=== PATIENT | female | born 1945 | race Caucasian/White ===

== ENCOUNTER → 2018-10-09 | Day surgery (SDC) | payer MEDICARE, BC ==
[~2018-10-09] MED LIST: Lidocaine 1% 20 ML MDV ONE
--- NOTE | 2018-10-09 10:18 | OR ---
DATE OF OPERATION: 10/09/2018 PREOPERATIVE DIAGNOSIS: VENOUS INSUFFICIENCY WITH PAINFUL VARICOSITIES. POSTOPERATIVE DIAGNOSIS: VENOUS INSUFFICIENCY WITH PAINFUL VARICOSITIES. SURGEON: Chad Patel MD PROCEDURE: MARGARITA, RIGHT GSV. ANESTHESIA: Local with tumescent. COMPLICATIONS: None. SPECIMEN: None. FINDINGS: Successful MARGARITA, right GSV. 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 She has painful varicosities from this. She elects to proceed with endovenous ablation. DESCRIPTION OF PROCEDURE: The patient was brought to the operating room suite, and the insufficient saphenous vein mapped via ultrasound and diagrammed on the overlying skin including the access site below the knee. The entire limb was prepped and draped in sterile fashion. The patient was placed in reverse Trendelenburg position. Local anesthesia was instilled over the access site. The vein was accessed using ultrasound guidance and Seldinger technique. With a needle inserted easily into the vein, the guidewire was introduced through the needle. Needle was removed. A small incision was made with an 11 blade scalpel. The guidewire was then exchanged with a 6-Hungarian sheath held in place by skin tension. The sheath was flushed. The radiofrequency probe was then placed into the vein through the sheath and positioned approximately 2.1 cm distal to the saphenofemoral junction under ultrasound guidance, keeping the catheter tip inferior to superficial epigastric vein. Once probe position confirmed again via ultrasound, tumescent anesthesia was infiltrated into the perivenous compartment along the length of the vein from the entry site to the saphenofemoral junction, achieving a nice halo effect around the vein. The patient was placed back in Trendelenburg position to exsanguinate the superficial venous system. Radiofrequency probe position was again confirmed via ultrasound, and under direct external compression along the length of the heating element, radiofrequency energy was applied. The vein was segmentally ablated by heating the 7 cm segment and indexing the catheter forward to 6.5 cm until treatment complete. Device temperature was maintained at 120 degrees Celsius with an initial power level of 40 fabian, dropping to below 20 for each treatment. Total radial radiofrequency treatment time was 3 minutes and 40 seconds with 11 radiofrequency cycles. We used a total of 600 mL of tumescent. Catheter and sheath were withdrawn without complication and direct pressure, allowed hemostasis. A butterfly dressing was applied over the access site. Repeat ultrasound of the vein confirmed successful treatment. The leg was wrapped with compression from the level of the foot to the groin. The patient was stable in the recovery room. ALIN/RIRI /[id number]
== END ==
LOC: CC.SDS 08:02
PROVIDERS: ATTEND Family Medicine
DX: I83.811 Varicose veins of right lower extremity with pain (principal); I87.2 Venous insufficiency (chronic) (peripheral)
CPT/HCPCS: 36475; A4216

== ENCOUNTER 2025-08-28 17:37 | Observation (INO) | payer MEDICARE, BC ==
[2025-08-28] MEDS ORDERED: Ondansetron 4 MG/2 ML SDV IV PRN (17:45)
[2025-08-28] MEDS: Calcium Carbonate/Vitamin D3 1250 MG-5 MCG Tab PO SCH (20:21)
[2025-08-29] MEDS: Ondansetron 4 MG Tab.DIS PO PRN (03:15)
[2025-08-29] MEDS: glipiZIDE 5 MG Tab.ER PO SCH (07:31)
[2025-08-29] MEDS: Potassium Chloride 10 MEQ Tab.ER PO SCH (07:31)
[2025-08-29] MEDS: Vitamin E (dl-alpha-tocopherol acetate) 400 Unit Cap PO SCH (07:33)
[2025-08-29 07:51] LABS: ALANINE AMINOTRANSFERASE,ALT 265.0 U/L (12-78); ASPARTATE AMNIOTRANSFERASE,AST 151.0 U/L (15-37); BILIRUBIN TOTAL 3.2 mg/dL (0.0-1.0); BLOOD UREA NITROGEN,BUN 11.0 mg/dL (7-18); CARBON DIOXIDE,CO2 24.0 mmol/L (21-32); CHLORIDE,CL 103.0 mEq/L (98-106); CREATININE 0.5 mg/dL (0.6-1.0); EST CRCL DRUG DOSING (CG) 74.91 mL/min; GLUCOSE RANDOM 122.0 mg/dL (75-99); POTASSIUM,K 3.8 mEq/L (3.5-5.0); PROTEIN TOTAL,TP 6.6 g/dL (6.4-8.2); SODIUM,NA 138.0 mEq/L (136-145)
[2025-08-29 07:58] LABS: BASOPHILS ABSOLUTE AUTO 0.08 10^3/uL (0.00-0.50); BASOPHILS PERCENT AUTO 0.9 % (0-1); EOSINOPHILS ABSOLUTE AUTO 0.56 10^3/uL (0.00-1.50); EOSINOPHILS PERCENT AUTO 6.3 % (0-6); ESTIMATED GFR 94.0 mL/min (>=60); IMMATURE GRAN ABSOLUTE AUTO 0.09 10^3/uL (0.00-0.49); IMMATURE GRAN PERCENT AUTO 1.0 % (0.0-4.9); LYMPHOCYTES ABSOLUTE AUTO 2.08 10^3/uL (0.60-5.00); LYMPHOCYTES PERCENT AUTO 23.6 % (24-44); MONOCYTES ABSOLUTE AUTO 0.69 10^3/uL (0.00-1.50); MONOCYTES PERCENT AUTO 7.8 % (0-10); NEUTROPHILS ABSOLUTE AUTO 5.33 x10^3/uL (1.80-8.00); NEUTROPHILS PERCENT AUTO 60.4 % (41-71); PLATELET COUNT,PLT 260 10^3/uL (150-400); RED BLOOD CELL COUNT 3.83 x10^6/uL (4.00-5.50); WHITE BLOOD CELL COUNT,WBC 8.8 10^3/uL (4.0-11.0)
== END 2025-08-29 13:30 | disposition home or self-care (01) ==
LOC: CC.MS 17:37 → UNDOADMOB 17:37 → CC.MS 17:45 → UNDOADMOB 17:45 → UNDODISOB 08-29 13:30
PROVIDERS: ADMIT Nurse Practitioner; ATTEND Nurse Practitioner
DX: R17 Unspecified jaundice (principal); R79.89 Other specified abnormal findings of blood chemistry; R74.8 Abnormal levels of other serum enzymes; Z88.8 Allergy status to other drugs, medicaments and biological substances; Z88.2 Allergy status to sulfonamides; Z79.84 Long term (current) use of oral hypoglycemic drugs; Z79.82 Long term (current) use of aspirin; Z79.899 Other long term (current) drug therapy
CPT/HCPCS: 36415; 80053; 83735; 84484; 85025; 93005; 96374; 99223; 99238; A9270-GY; G0378; J0153; J7030